=== PATIENT | female | born 1985 | race Caucasian/White ===

== ENCOUNTER 2023-01-04 20:07 | Emergency (ER) | payer BC ==
[~2023-01-04] VITALS: Ht 154.9 cm; Wt 104.3 kg
[2023-01-04 22:00] VITALS: BP 142/90
[2023-01-04] MEDS ORDERED: diphenhydrAMINE HCL 25 MG CAPSULE PO ONE (22:00)
[2023-01-04] MEDS ORDERED: FAMOTIDINE (20 MG) 20 MG TABLET PO ONE (22:00)
[2023-01-04] MEDS ORDERED: IPRATROPIUM NEB FS 0.5 MG/2.5 ML AMPUL.NEB NEB ONE (22:00)
[2023-01-04] MEDS ORDERED: ALBUTEROL FS 2.5 MG/3 ML VIAL.NEB CONTNEB ONE (22:00)
[2023-01-04] MEDS ORDERED: predniSONE 10 MG TABLET PO ONE (22:00)
[2023-01-04] MEDS ORDERED: predniSONE 20 MG TABLET ONE (22:04)
[2023-01-04] MEDS ORDERED: diphenhydrAMINE HCL 25 MG CAPSULE ONE (22:04)
[2023-01-04] MEDS ORDERED: FAMOTIDINE (20 MG) 20 MG TABLET ONE (22:05)
--- NOTE | 2023-01-04 22:18 | NUR ---
CALLED RT FOR BREATHING TX
[2023-01-04] MEDS ORDERED: ALBUTEROL FS 2.5 MG/3 ML VIAL.NEB ONE (22:22)
[2023-01-04] MEDS ORDERED: IPRATROPIUM NEB FS 0.5 MG/2.5 ML AMPUL.NEB ONE (22:22)
[2023-01-04] MEDS ORDERED: PRED20TA PO ×2 (22:36→23:00)
--- NOTE | 2023-01-04 22:48 | NUR ---
RT AT PT'S BEDSIDE FOR BREATHING TX
--- NOTE | 2023-01-04 23:09 | NUR ---
Patient discharged to home in stable condition. Written and verbal after care instructions given. Patient verbalizes understanding of instruction.Pt ambulatory with a steady gait
== END 2023-01-04 23:12 | disposition home or self-care (01) ==
LOC: ER 20:09
DX: T78.40XA Allergy, unspecified, initial encounter (principal); F32.A Depression, unspecified; Z88.0 Allergy status to penicillin; Z88.8 Allergy status to other drugs, medicaments and biological substances; Z60.2 Problems related to living alone; X58.XXXA Exposure to other specified factors, initial encounter
CPT/HCPCS: 99285; 94640 ×2; Q0163; J7512